=== PATIENT | male | born 1945 | race Caucasian/White ===

== ENCOUNTER 2017-02-23 09:29 | Emergency (ER) | payer MEDICARE ==
[~2017-02-23] VITALS: Ht 165.1 cm; Wt 72.6 kg
[2017-02-23] MEDS ORDERED: PRAV40TA PO (09:43)
[2017-02-23] MEDS ORDERED: ASPI325T PO (09:43)
[2017-02-23] MEDS ORDERED: LISIPOW PO (09:43)
[2017-02-23 09:45] VITALS: BP 124/68
[2017-02-23] MEDS ORDERED: LEVALBUTEROL 1.25 MG/0.5 ML CONCENTRATE NEB As Ordered ONE (11:15)
--- NOTE | 2017-02-23 12:24 | REP ---
CHEST, TWO VIEWS: Two views of the chest are performed. Fibrotic scarring is again seen bilaterally which appears essentially stable. There is no acute infiltrate or pulmonary edema. The heart is normal in size. There is calcification of the thoracic aorta. The mediastinal silhouette is unchanged. There are degenerative changes of the spine. IMPRESSION: Stable chronic findings without evidence of acute infiltrate. Signed by Cory Cao MD 02/23/2017 12:59 P
[2017-02-23] MEDS ORDERED: DOXY100C37 PO (12:34)
[2017-02-23] MEDS ORDERED: ALBU17IN INH (12:34)
[2017-02-23] MEDS ORDERED: CLAR1TAB2 PO (12:34)
[2017-02-23] MEDS ORDERED: LORATADINE 10 MG TAB PO ONE (12:45)
[2017-02-23] MEDS ORDERED: DOXYCYCLINE HYCLATE 100 MG TAB PO ONE (12:45)
[2017-02-23] MEDS ORDERED: ACETAMINOPHEN TAB 650MG DOSE (2X325MG) PO ONE (12:45)
== END 2017-02-23 13:04 | disposition home or self-care (01) ==
LOC: M ED 11:48
DX: J20.9 Acute bronchitis, unspecified (principal); J01.90 Acute sinusitis, unspecified; I10 Essential (primary) hypertension; E78.5 Hyperlipidemia, unspecified; Z87.891 Personal history of nicotine dependence; Z79.899 Other long term (current) drug therapy; Z79.82 Long term (current) use of aspirin

== ENCOUNTER → 2018-10-23 | Outpatient (CLI) | payer MEDICARE | LOC: M RAD 09:50 | DX: Z12.2 Encounter for screening for malignant neoplasm of respiratory organs (principal); R91.1 Solitary pulmonary nodule; Z87.891 Personal history of nicotine dependence | CPT/HCPCS: G0297 ==

== ENCOUNTER → 2019-12-30 | Outpatient (CLI) | payer MEDICARE ==
[~2019-12-30] MED LIST: ALBU17IN INH; ASPI-1 PO; CLAR1TAB2 PO; DOXY100C37 PO; LISIPOW PO; PRAV40TA PO
--- NOTE | 2019-12-30 12:21 | REP ---
Clinical: Lung screening. History smoking. Comparison: 10/23/2018 Technique: Axial low-dose noncontrast images from the thoracic inlet to the upper abdomen using lung screening technique. Findings: The lung truong demonstrates stable scattered partially calcified pleural plaques along with minimal scattered scarring primarily noted at the medial right middle lobe and left base as well as right base. No obvious acute nodule, mass or consolidation. No effusion. Impression: Lung-RADS II. Management recommendations include annual low-dose surveillance. Electronically Signed by Ge Vick MD 12/30/2019 12:12 P
== END ==
LOC: M RAD 11:15
PROVIDERS: ATTEND Family Medicine
DX: Z87.891 Personal history of nicotine dependence (principal)

== ENCOUNTER 2025-05-31 12:55 | Emergency (ER) | payer MEDICARE ==
[~2025-05-31] VITALS: Ht 165.1 cm; Wt 85.0 kg
[~2025-05-31 12:55] MED LIST changes: +DOXY-441 PO; -DOXY100C37 PO
[2025-05-31] MEDS: LIDOCAINE 5% PATCH TD ONE (16:59)
[2025-05-31 19:04] VITALS: O2SAT 94
[2025-05-31] MEDS ORDERED: LIDO1ADH93 TD (19:26)
[2025-05-31] MEDS ORDERED: MEDR4PAK PO (19:26)
[2025-05-31 19:40] VITALS: TEMP 97.1
[2025-05-31 19:42] VITALS: BP 188/80
== END 2025-05-31 19:55 | disposition home or self-care (01) ==
LOC: M ED 12:55
DX: S39.012A Strain of muscle, fascia and tendon of lower back, initial encounter (principal); Y92.9 Unspecified place or not applicable; Y93.9 Activity, unspecified; Y99.9 Unspecified external cause status; I10 Essential (primary) hypertension; E78.00 Pure hypercholesterolemia, unspecified; Z79.1 Long term (current) use of non-steroidal anti-inflammatories (NSAID); Z79.51 Long term (current) use of inhaled steroids; Z79.899 Other long term (current) drug therapy

== ENCOUNTER 2025-06-02 12:37 | Emergency (ER) | payer MEDICARE ==
[~2025-06-02] VITALS: Ht 165.1 cm; Wt 86.2 kg
[~2025-06-02 12:37] MED LIST changes: +LIDO1ADH93 TD; +MEDR4PAK PO
[2025-06-02] MEDS: traMADol 50 MG TAB PO ONE (14:45)
[2025-06-02 15:39] VITALS: BP 151/83; TEMP 97.1; O2SAT 98
[2025-06-02] MEDS ORDERED: TRAM50TA2 PO (15:49)
== END 2025-06-02 15:52 | disposition home or self-care (01) ==
LOC: M ED 12:37
DX: M54.50 Low back pain, unspecified (principal); I10 Essential (primary) hypertension; E78.5 Hyperlipidemia, unspecified; Z79.1 Long term (current) use of non-steroidal anti-inflammatories (NSAID); Z79.51 Long term (current) use of inhaled steroids; Z79.899 Other long term (current) drug therapy